=== PATIENT | male | born 1990 | race Caucasian/White ===

== ENCOUNTER 2017-07-24 20:22 | Emergency (ER) | payer SELFPAY, OTHER | END 2017-07-25 00:31 | disposition left against medical advice (07) | LOC: E/R 20:22 | DX: Z53.21 Procedure and treatment not carried out due to patient leaving prior to being seen by health care provider (principal) ==

== ENCOUNTER 2018-04-29 11:52 | Emergency (ER) | payer OTHER | END 2018-04-29 12:10 | disposition home or self-care (01) | LOC: E/R 11:52 | DX: R10.9 Unspecified abdominal pain (principal); F17.210 Nicotine dependence, cigarettes, uncomplicated | CPT/HCPCS: 99282; Z7502 ==

== ENCOUNTER 2018-09-15 17:30 | Inpatient (IN) | payer OTHER ==
[2018-09-15] MEDS ORDERED: ZOLPIDEM 5 MG TAB PO (18:30)
[2018-09-15] MEDS ORDERED: ACETAMINOPHEN 325 MG TAB PO (18:30)
[2018-09-15] MEDS ORDERED: NACL 0.9% 3 ML SYG IV (18:30)
[2018-09-15] MEDS: morphine 2 MG INJ IV ×2 (18:50→23:21)
[2018-09-15] MEDS: POTASSIUM CHLORIDE 40 MEQ in SOD CHLORIDE 0.9% 1,000 ML IV (20:17)
[2018-09-15] MEDS: clonAZEPAM 0.5 MG TAB PO (20:18)
[2018-09-15] MEDS: NICOTINE (21 MG/24 HR) PATCH TRANSDERM (23:16)
[2018-09-16] MEDS: ONDANSETRON 4 MG INJ IV ×2 (02:08→08:12)
[2018-09-16] MEDS: morphine 2 MG INJ IV ×6 (03:10→23:40)
[2018-09-16 05:42] LABS: ADD MAN DIFF? NO
[2018-09-16 05:44] LABS: BASOPHIL # 0.1 10^3/ul (0.0-0.1); BASOPHILS % 0.6 % (0.0-2.0); EOSINOPHILS % 0.4 % (0.0-7.0); HEMATOCRIT 41.4 % (42.0-52.0); HEMOGLOBIN 14.8 g/dl (14.0-18.0); LYMPHOCYTES # 2.1 10^3/ul (0.8-2.9); LYMPHOCYTES % 20.7 % (15.0-51.0); MEAN CORPUSCULAR HEMOGLOBIN 31.2 pg (29.0-33.0); MEAN CORPUSCULAR HGB CONC 35.7 g/dl (32.0-37.0); MEAN CORPUSCULAR VOLUME 87.3 fl (82.0-101.0); MEAN PLATELET VOLUME 9.8 fl (7.4-10.4); MONOCYTE # 1.3 10^3/ul (0.3-0.9); MONOCYTES % 12.3 % (0.0-11.0); NEUTROPHIL # 6.7 10^3/ul (1.6-7.5); NEUTROPHILS % 65.8 % (39.0-77.0); PLATELET COUNT 411 10^3/UL (140-415); RED BLOOD COUNT 4.74 10^6/ul (4.70-6.10); RED CELL DISTRIBUTION WIDTH 11.8 % (11.5-14.5)
[2018-09-16 05:44] LABS: WHITE BLOOD COUNT 10.2 10^3/ul (4.8-10.8)
[2018-09-16 06:02] LABS: HEMOGLOBIN A1C 5.1 % (0-5.9)
[2018-09-16] MEDS: POTASSIUM CHLORIDE 40 MEQ in SOD CHLORIDE 0.9% 1,000 ML IV ×2 (06:13→14:30)
[2018-09-16 06:21] LABS: ALANINE AMINOTRANSFERASE 26 IU/L (13-69); ALBUMIN 4.4 g/dl (3.3-4.9); ALBUMIN/GLOBULIN RATIO 1.12; ALKALINE PHOSPHATASE 69 IU/L (42-121); ASPARTATE AMINO TRANSFERASE 31 IU/L (15-46); BILIRUBIN,INDIRECT 0.9 mg/dl (0-1.1); BILIRUBIN,TOTAL 0.9 mg/dl (0.2-1.3); BLOOD UREA NITROGEN 44 mg/dl (7-20); CALCIUM 9.5 mg/dl (8.4-10.2); CHLORIDE 76 mmol/L (97-110); CREATININE 1.34 mg/dl (0.61-1.24); Estimated GFR > 60 mL/min (>60); GLUCOSE 114 mg/dl (70-220); MAGNESIUM 2.1 mg/dl (1.7-2.5); PHOSPHORUS 2.7 mg/dl (2.5-4.9); SODIUM 134 mmol/L (135-144); TOTAL PROTEIN 8.3 g/dl (6.1-8.1)
[2018-09-16 06:24] LABS: POTASSIUM 2.5 mmol/L (3.5-5.1)
[2018-09-16 06:44] LABS: ANION GAP 15 (5-13); CARBON DIOXIDE 43 mmol/L (21-31)
[2018-09-16] MEDS: clonAZEPAM 0.5 MG TAB PO ×2 (08:12→21:19)
[2018-09-16] MEDS: NICOTINE (21 MG/24 HR) PATCH TRANSDERM (08:13)
[2018-09-16] MEDS: POTASSIUM CHLORIDE 100 ML IVPB ×3 (08:23→15:03)
[2018-09-16] MEDS ORDERED: NICOTINE (21 MG/24 HR) PATCH TRANSDERM (09:00)
[2018-09-16] MEDS: INFLUENZA VIRUS VACCINE 0.5 ML (DISPENSING) IM* (09:00)
[2018-09-16] MEDS: HYDROCODONE/APAP (5/325) TAB PO ×3 (09:52→23:04)
[2018-09-17] MEDS: POTASSIUM CHLORIDE 40 MEQ in SOD CHLORIDE 0.9% 1,000 ML IV ×5 (00:29→22:51)
[2018-09-17] MEDS: morphine 2 MG INJ IV ×5 (03:42→20:32)
[2018-09-17] MEDS: ONDANSETRON 4 MG INJ IV (04:26)
[2018-09-17] MEDS: HYDROCODONE/APAP (5/325) TAB PO ×3 (05:15→22:51)
[2018-09-17 06:35] LABS: ANION GAP 6 (5-13); BLOOD UREA NITROGEN 28 mg/dl (7-20); CALCIUM 9.2 mg/dl (8.4-10.2); CARBON DIOXIDE 39 mmol/L (21-31); CHLORIDE 91 mmol/L (97-110); CREATININE 1.04 mg/dl (0.61-1.24); Estimated GFR > 60 mL/min (>60); GLUCOSE 94 mg/dl (70-220); POTASSIUM 3.3 mmol/L (3.5-5.1); SODIUM 136 mmol/L (135-144)
[2018-09-17] MEDS: clonAZEPAM 0.5 MG TAB PO ×3 (07:49→20:32)
[2018-09-17] MEDS: NICOTINE (21 MG/24 HR) PATCH TRANSDERM (07:49)
[2018-09-17] MEDS: LORAZEPAM 1 MG TAB PO ×2 (10:02→18:20)
[2018-09-17] MEDS: ESCITALOPRAM 10 MG TAB PO (17:06)
[2018-09-17] MEDS: BUSPIRONE 5 MG TAB PO (20:31)
[2018-09-17] MEDS: LORAZEPAM 2 MG INJ IV (21:50)
[2018-09-18] MEDS: morphine 2 MG INJ IV ×3 (00:04→08:15)
[2018-09-18] MEDS: LORAZEPAM 1 MG TAB PO ×2 (02:35→09:25)
[2018-09-18] MEDS: HYDROCODONE/APAP (5/325) TAB PO (03:15)
[2018-09-18 06:55] LABS: ANION GAP 7 (5-13); BLOOD UREA NITROGEN 18 mg/dl (7-20); CALCIUM 8.5 mg/dl (8.4-10.2); CARBON DIOXIDE 33 mmol/L (21-31); CHLORIDE 98 mmol/L (97-110); CREATININE 0.87 mg/dl (0.61-1.24); Estimated GFR > 60 mL/min (>60); GLUCOSE 79 mg/dl (70-220); POTASSIUM 3.5 mmol/L (3.5-5.1); SODIUM 138 mmol/L (135-144)
[2018-09-18] MEDS: BUSPIRONE 5 MG TAB PO (08:12)
[2018-09-18] MEDS: clonAZEPAM 0.5 MG TAB PO (08:12)
[2018-09-18] MEDS: ESCITALOPRAM 10 MG TAB PO (08:12)
[2018-09-18] MEDS: NICOTINE (21 MG/24 HR) PATCH TRANSDERM (08:13)
== END 2018-09-18 11:00 | disposition home or self-care (01) | DRG 392 ==
LOC: 6WM 17:30
DX: R11.2 Nausea with vomiting, unspecified (principal); Z68.1 Body mass index [BMI] 19.9 or less, adult; E44.0 Moderate protein-calorie malnutrition; E87.6 Hypokalemia; F31.9 Bipolar disorder, unspecified; F41.9 Anxiety disorder, unspecified; F17.210 Nicotine dependence, cigarettes, uncomplicated
CPT/HCPCS: 80048; 80053; 83036; 83735; 84100; 85025; 90686

== ENCOUNTER 2018-09-20 18:24 | Emergency (ER) | payer SELFPAY, OTHER | END 2018-09-20 21:08 | disposition left against medical advice (07) | LOC: E/R 18:24 | DX: Z53.21 Procedure and treatment not carried out due to patient leaving prior to being seen by health care provider (principal) ==

== ENCOUNTER 2018-09-21 10:55 | Emergency (ER) | payer OTHER ==
[2018-09-21] MEDS: KETOROLAC 30 MG INJ IV (12:09)
[2018-09-21] MEDS: LORAZEPAM 2 MG INJ IV ×2 (12:09→13:27)
[2018-09-21] MEDS: SOD CHLORIDE 0.9% 1,000 ML IV (12:09)
[2018-09-21 12:11] LABS: ADD MAN DIFF? NO
[2018-09-21 12:18] LABS: WHITE BLOOD COUNT 6.7 10^3/ul (4.8-10.8)
[2018-09-21 12:18] LABS: BASOPHIL # 0.1 10^3/ul (0.0-0.1); EOSINOPHILS # 0.1 10^3/ul (0.0-0.5); EOSINOPHILS % 0.9 % (0.0-7.0); HEMATOCRIT 39.8 % (42.0-52.0); HEMOGLOBIN 13.5 g/dl (14.0-18.0); LYMPHOCYTES # 1.7 10^3/ul (0.8-2.9); LYMPHOCYTES % 25.5 % (15.0-51.0); MEAN CORPUSCULAR HGB CONC 33.9 g/dl (32.0-37.0); MEAN CORPUSCULAR VOLUME 91.5 fl (82.0-101.0); MEAN PLATELET VOLUME 9.4 fl (7.4-10.4); MONOCYTE # 0.6 10^3/ul (0.3-0.9); MONOCYTES % 8.2 % (0.0-11.0); NEUTROPHIL # 4.3 10^3/ul (1.6-7.5); NEUTROPHILS % 64.1 % (39.0-77.0); PLATELET COUNT 376 10^3/UL (140-415); RED BLOOD COUNT 4.35 10^6/ul (4.70-6.10); RED CELL DISTRIBUTION WIDTH 12.9 % (11.5-14.5)
[2018-09-21 12:43] LABS: ANION GAP 12 (5-13); BLOOD UREA NITROGEN 30 mg/dl (7-20); CALCIUM 9.8 mg/dl (8.4-10.2); CARBON DIOXIDE 32 mmol/L (21-31); CHLORIDE 102 mmol/L (97-110); CREATININE 1.21 mg/dl (0.61-1.24); Estimated GFR > 60 mL/min (>60); GLUCOSE 94 mg/dl (70-220); SODIUM 146 mmol/L (135-144)
[2018-09-21] MEDS: KETAMINE (50 MG/ML) 10 ML VIAL IV (12:57)
[2018-09-21] MEDS: HYDROCODONE/APAP (10/325) TAB PO (13:27)
[2018-09-21] MEDS ORDERED: ONDANSETRON 4 MG INJ IV (14:30)
[2018-09-21] MEDS ORDERED: ACETAMINOPHEN 325 MG TAB PO (14:30)
== END 2018-09-21 14:15 | disposition home or self-care (01) ==
LOC: E/R 10:55
DX: R55 Syncope and collapse (principal); G43.A1 Cyclical vomiting, in migraine, intractable; F17.210 Nicotine dependence, cigarettes, uncomplicated; F11.20 Opioid dependence, uncomplicated
CPT/HCPCS: 36415; 70450; 73030-RT; 80048; 85025; 93005; 96374; 96375; 96376; 99285-25

== ENCOUNTER 2018-09-25 16:35 | Inpatient (IN) | payer OTHER ==
[2018-09-25] MEDS ORDERED: morphine 2 MG INJ IV (18:00)
[2018-09-25] MEDS ORDERED: MAGNESIUM HYDROXIDE 30ML CUP PO (18:00)
[2018-09-25] MEDS ORDERED: DOCUSATE SODIUM 100 MG CAP PO (18:00)
[2018-09-25] MEDS ORDERED: NACL 0.9% 3 ML SYG IV (18:00)
[2018-09-25] MEDS ORDERED: METOCLOPRAMIDE 10 MG INJ IV (18:00)
[2018-09-25] MEDS ORDERED: POTASSIUM CHLORIDE (SR) 20 MEQ TAB PO (18:27)
[2018-09-25] MEDS: PANTOPRAZOLE 40 MG INJ IV (19:02)
[2018-09-25] MEDS: traMADol 50 MG TAB PO (19:06)
[2018-09-25] MEDS: DEXTROSE 5%-0.45% NACL 1,000 ML IV (19:09)
[2018-09-25] MEDS: morphine 2 MG INJ IV (19:26)
[2018-09-25] MEDS: LORAZEPAM 2 MG INJ IV (20:04)
[2018-09-25] MEDS: BUSPIRONE 5 MG TAB PO (20:04)
[2018-09-25] MEDS: NICOTINE (21 MG/24 HR) PATCH TRANSDERM (20:04)
[2018-09-25] MEDS: clonAZEPAM 0.5 MG TAB PO (20:04)
[2018-09-25] MEDS ORDERED: SOD CHLORIDE 0.9% 100 ML (20:38)
[2018-09-25] MEDS ORDERED: IODIXANOL LOCM 100 ML BTL (20:38)
[2018-09-26] MEDS: morphine 2 MG INJ IV ×4 (00:25→20:02)
[2018-09-26] MEDS: LORAZEPAM 2 MG INJ IV ×3 (02:10→22:06)
[2018-09-26] MEDS: PANTOPRAZOLE 40 MG INJ IV ×2 (06:25→17:36)
[2018-09-26] MEDS: DEXTROSE 5%-0.45% NACL 1,000 ML IV ×3 (06:26→17:00)
[2018-09-26 07:20] LABS: ADD MAN DIFF? NO
[2018-09-26 07:23] LABS: BASOPHILS % 0.4 % (0.0-2.0); EOSINOPHILS # 0.1 10^3/ul (0.0-0.5); EOSINOPHILS % 0.7 % (0.0-7.0); HEMATOCRIT 33.5 % (42.0-52.0); HEMOGLOBIN 11.1 g/dl (14.0-18.0); LYMPHOCYTES # 1.8 10^3/ul (0.8-2.9); MEAN CORPUSCULAR HEMOGLOBIN 31.1 pg (29.0-33.0); MEAN CORPUSCULAR HGB CONC 33.1 g/dl (32.0-37.0); MEAN CORPUSCULAR VOLUME 93.8 fl (82.0-101.0); MEAN PLATELET VOLUME 9.6 fl (7.4-10.4); MONOCYTE # 0.4 10^3/ul (0.3-0.9); MONOCYTES % 4.2 % (0.0-11.0); NEUTROPHILS % 77.2 % (39.0-77.0); PLATELET COUNT 260 10^3/UL (140-415); RED BLOOD COUNT 3.57 10^6/ul (4.70-6.10); RED CELL DISTRIBUTION WIDTH 12.9 % (11.5-14.5)
[2018-09-26 07:23] LABS: WHITE BLOOD COUNT 10.4 10^3/ul (4.8-10.8)
[2018-09-26 07:46] LABS: ALANINE AMINOTRANSFERASE 19 IU/L (13-69); ALBUMIN 3.6 g/dl (3.3-4.9); ALBUMIN/GLOBULIN RATIO 1.24; ALKALINE PHOSPHATASE 50 IU/L (42-121); ANION GAP 10 (5-13); ASPARTATE AMINO TRANSFERASE 22 IU/L (15-46); BILIRUBIN,INDIRECT 0.7 mg/dl (0-1.1); BILIRUBIN,TOTAL 0.7 mg/dl (0.2-1.3); BLOOD UREA NITROGEN 22 mg/dl (7-20); CALCIUM 8.9 mg/dl (8.4-10.2); CARBON DIOXIDE 26 mmol/L (21-31); CHLORIDE 105 mmol/L (97-110); CREATININE 0.83 mg/dl (0.61-1.24); Estimated GFR > 60 mL/min (>60); GLUCOSE 79 mg/dl (70-220); MAGNESIUM 1.7 mg/dl (1.7-2.5); SODIUM 141 mmol/L (135-144); TOTAL PROTEIN 6.5 g/dl (6.1-8.1)
[2018-09-26] MEDS: ESCITALOPRAM 10 MG TAB PO (08:23)
[2018-09-26] MEDS: BUSPIRONE 5 MG TAB PO ×3 (08:24→20:54)
[2018-09-26] MEDS: clonAZEPAM 0.5 MG TAB PO ×3 (08:24→20:54)
[2018-09-26] MEDS: NICOTINE (21 MG/24 HR) PATCH TRANSDERM (08:25)
[2018-09-26] MEDS: ONDANSETRON 4 MG INJ IV (08:29)
[2018-09-26] MEDS: traMADol 50 MG TAB PO (08:48)
[2018-09-26] MEDS: HALOPERIDOL 5 MG INJ IM (10:08)
[2018-09-27] MEDS: morphine 2 MG INJ IV ×2 (00:19→04:27)
[2018-09-27] MEDS: DEXTROSE 5%-0.45% NACL 1,000 ML IV (02:24)
[2018-09-27] MEDS: ACETAMINOPHEN 325 MG TAB PO (02:25)
[2018-09-27] MEDS: PANTOPRAZOLE 40 MG INJ IV (05:31)
[2018-09-27] MEDS: LORAZEPAM 2 MG INJ IV (05:33)
[2018-09-27 06:27] LABS: WHITE BLOOD COUNT 7.8 10^3/ul (4.8-10.8)
[2018-09-27 06:27] LABS: HEMATOCRIT 35.4 % (42.0-52.0); HEMOGLOBIN 11.9 g/dl (14.0-18.0); MEAN CORPUSCULAR HEMOGLOBIN 31.2 pg (29.0-33.0); MEAN CORPUSCULAR HGB CONC 33.6 g/dl (32.0-37.0); MEAN CORPUSCULAR VOLUME 92.7 fl (82.0-101.0); MEAN PLATELET VOLUME 9.5 fl (7.4-10.4); PLATELET COUNT 210 10^3/UL (140-415); POSITIVE DIFF @See below; RED BLOOD COUNT 3.82 10^6/ul (4.70-6.10); RED CELL DISTRIBUTION WIDTH 12.8 % (11.5-14.5)
[2018-09-27 06:44] LABS: ADD MAN DIFF? YES
[2018-09-27 09:11] LABS: ANISOCYTOSIS 1+ (0-0); BAND NEUTROPHILS #M 0.3 10^3/ul (0.0-0.6); BAND NEUTROPHILS % (M) 4 % (0-4); LYMPHOCYTES #M 0.7 10^3/ul (0.8-2.9); LYMPHOCYTES % (M) 10 % (15-51); MICROCYTOSIS 1+ (0-0); MONOCYTE #M 0.1 10^3/ul (0.3-0.9); MONOCYTES % (M) 2 % (0-11); OVALOCYTES 1+ (0-0); PLATELET ESTIMATE NORMAL; POLYCHROMASIA 3+ (0-0); SEG NEUT #M 6.6 10^3/ul (1.6-7.5); SEGMENTED NEUTROPHILS (M) % 84 % (39-77); SMUDGE%M 2 % (0-0)
== END 2018-09-27 06:26 | disposition left against medical advice (07) | DRG 379 ==
LOC: 5EC 16:35
DX: K92.0 Hematemesis (principal); R55 Syncope and collapse; G43.A0 Cyclical vomiting, in migraine, not intractable; F41.9 Anxiety disorder, unspecified; F31.9 Bipolar disorder, unspecified; Z72.0 Tobacco use
CPT/HCPCS: 74177; 80053; 83735; 85025

== ENCOUNTER 2018-12-30 01:54 | Emergency (ER) | payer OTHER ==
[2018-12-30] MEDS: ONDANSETRON 4 MG INJ IV (04:36)
[2018-12-30] MEDS: SOD CHLORIDE 0.9% 1,000 ML IV (04:36)
[2018-12-30 04:37] LABS: ADD UMIC YES; UR ASCORBIC ACID NEGATIVE (NEGATIVE); UR BILIRUBIN (Dip) NEGATIVE (NEGATIVE); UR BLOOD (Dip) 2+ mg/dL (NEGATIVE); UR CLARITY CLEAR (CLEAR); UR COLOR YELLOW (YELLOW); UR GLUCOSE (Dip) 1+ mg/dL (NEGATIVE); UR KETONES (Dip) NEGATIVE (NEGATIVE); UR LEUKOCYTE ESTERASE (Dip) NEGATIVE Leu/ul (NEGATIVE); UR NITRITE (Dip) NEGATIVE (NEGATIVE); UR RBC 7 /HPF (0-5); UR SPECIFIC GRAVITY (Dip) 1.027 (1.003-1.030); UR TOTAL PROTEIN (Dip) 1+ mg/dl (NEGATIVE); UR UROBILINOGEN (Dip) 1+ mg/dL (NEGATIVE); UR WBC 0 /HPF (0-5)
[2018-12-30 04:46] LABS: ADD MAN DIFF? NO
[2018-12-30 04:47] LABS: BASOPHILS % 0.1 % (0.0-2.0); EOSINOPHILS % 0.1 % (0.0-7.0); HEMATOCRIT 48.5 % (42.0-52.0); HEMOGLOBIN 16.2 g/dl (14.0-18.0); LYMPHOCYTES # 1.4 10^3/ul (0.8-2.9); LYMPHOCYTES % 19.6 % (15.0-51.0); MEAN CORPUSCULAR HEMOGLOBIN 31.3 pg (29.0-33.0); MEAN CORPUSCULAR HGB CONC 33.4 g/dl (32.0-37.0); MEAN CORPUSCULAR VOLUME 93.6 fl (82.0-101.0); MEAN PLATELET VOLUME 10.3 fl (7.4-10.4); MONOCYTE # 1.2 10^3/ul (0.3-0.9); MONOCYTES % 15.6 % (0.0-11.0); NEUTROPHIL # 4.7 10^3/ul (1.6-7.5); NEUTROPHILS % 64.3 % (39.0-77.0); PLATELET COUNT 278 10^3/UL (140-415); RED BLOOD COUNT 5.18 10^6/ul (4.70-6.10); RED CELL DISTRIBUTION WIDTH 12.3 % (11.5-14.5)
[2018-12-30 04:47] LABS: WHITE BLOOD COUNT 7.4 10^3/ul (4.8-10.8)
[2018-12-30 05:04] LABS: ALANINE AMINOTRANSFERASE 29 IU/L (13-69); ALBUMIN 4.9 g/dl (3.3-4.9); ALBUMIN/GLOBULIN RATIO 1.25; ALKALINE PHOSPHATASE 72 IU/L (42-121); ASPARTATE AMINO TRANSFERASE 47 IU/L (15-46); BLOOD UREA NITROGEN 71 mg/dl (7-20); CALCIUM 9.4 mg/dl (8.4-10.2); CHLORIDE 93 mmol/L (97-110); CREATININE 1.49 mg/dl (0.61-1.24); Estimated GFR 56 mL/min (>60); GLUCOSE 106 mg/dl (70-220); LIPASE 143 U/L (23-300); SODIUM 144 mmol/L (135-144); TOTAL PROTEIN 8.8 g/dl (6.1-8.1)
[2018-12-30 05:12] LABS: ANION GAP 9 (5-13); CARBON DIOXIDE 42 mmol/L (21-31)
== END 2018-12-30 06:50 | disposition home or self-care (01) ==
LOC: E/R 01:54
DX: G89.29 Other chronic pain (principal); Z87.891 Personal history of nicotine dependence
CPT/HCPCS: 36415; 80053; 81001; 83690; 85025; 93005; 96374; 99284-25

== ENCOUNTER 2019-03-14 16:12 | Emergency (ER) | payer OTHER | END 2019-03-14 18:18 | disposition home or self-care (01) | LOC: E/R 18:18 | DX: F11.20 Opioid dependence, uncomplicated (principal); Z72.89 Other problems related to lifestyle; Z76.5 Malingerer [conscious simulation] | CPT/HCPCS: 99282; Z7502 ==